=== PATIENT | female | born 1985 | race Caucasian/White ===

== ENCOUNTER 2021-03-21 15:46 | Emergency (ER) | payer OTHER ==
[~2021-03-21] VITALS: Ht 160 cm; Wt 57.7 kg
--- NOTE | 2021-03-21 16:44 | PHYS DOC ---
General Adult EDM: Chief Complaint: RIB PAIN HPI: HPI: 35-year-old female presents with right lower quadrant abdominal pain and chest pain. She describes the pain is pain under her right ribs when she stands up, but goes down to her lower right abdomen when she sits down. It is worse with leaning back against something. The pain is a sharp pain moderate intensity. She also states that it is radiating up into her right shoulder and across her upper chest. She has not had this before. She denies shortness of breath but admits to taking shallow breaths because of pain. The patient has had pain like this before, but has not had in several months. She has intermittent issues wit h constipation at baseline. (KAUSHAL ORTEGA DO) Review of Systems: Review of Systems: Constitutional: Denies fever or chills Eyes: Denies change in visual acuity HENT: Denies nasal congestion or sore throat Respiratory: Shallow breathing Cardiovascular: Chest pain GI: Right lower quadrant abdominal pain. Denies nausea, vomiting, bloody stools or diarrhea : Denies dysuria Musculoskeletal: Denies back pain or joint pain Integument: Denies rash Neurologic: Denies headache, focal weakness or sensory changes Endocrine: Denies polyuria or polydipsia Lymphatic: Denies swollen glands Psychiatric: Denies depression or anxiety (KAUSHAL ORTEGA DO) Allergies: Allergies: Allergies Coded Allergies Type Severity Reaction Last Updated Verified No Known Drug Allergies 03/21/21 No (KAUSHAL ORTEGA DO) Physical Exam: PE: Constitutional: Well developed, well nourished, no acute distress, non-toxic appearance. [] HENT: Normocephalic, atraumatic, bilateral external ears normal, oropharynx moist, no oral exudates, nose normal. [] Eyes: PERRLA, EOMI, conjunctiva normal, no discharge. [] Neck: Normal range of motion, no tenderness, supple, no stridor. [] Cardiovascular:Heart rate regular rhythm, no murmur [] Lungs & Thorax: Bilateral breath sounds clear to auscultation [] Abdomen: Bowel sounds normal, soft, RLQ tenderness, no masses, no pulsatile masses. [] Skin: Warm, dry, no erythema, no rash. [] Back: No tenderness, no CVA tenderness. [] Extremities: No tenderness, no cyanosis, no clubbing, ROM intact, no edema. [] Neurologic: Alert and oriented X 3, normal motor function, normal sensory functi on, no focal deficits noted. [] Psychologic: Affect normal, judgement normal, mood normal. [] (KAUSHAL ORTEGA DO) Current Patient Data: Labs: Laboratory Tests Test 03/21/21 16:10 POC Urine HCG, Qualitative hcg negative (Negative) Vital Signs: Vital Signs Date Time Temp Pulse Resp B/P (MAP) Pulse Ox O2 Delivery O2 Flow Rate FiO2 03/21/21 15:46 98.5 70 20 111/71 (84) 100 Room Air (KAUSHAL ORTEGA DO) EKG: EKG: Sinus bradycardia, rate 49, normal axis, no ST elevation or depression. [] (KAUSHAL ORTEGA DO) Radiology/Procedures: Radiology/Procedures: [] (KAUSHAL ORTEGA DO) Radiology/Procedures: [address] [address] IMAGING REPORT Signed PATIENT: NORRIS ERVIN ACCOUNT: [id number] : 1985 LOCATION: ER AGE: 35 SEX: F EXAM STATUS: REG ER ORD. PHYSICIAN: KAUSHAL ORTEGA DO REASON: RLQ abdominal pain PROCEDURE: CT ABD PELV W/ IV CONTRST ONLY EXAMINATION: CT ABDOMEN+PELVIS W (CT ABDOMEN/PELVIS WITH IV CONTRAST) CLINICAL HISTORY: Right lower quadrant abdominal pain TECHNIQUE: CT of the abdomen and pelvis was performed using standard technique, scanning from just above the dome of the diaphragm to the symphysis pubis following administration of intravenous contrast. CT Dose Reduction Employed: One or more of the following individualized dose reduction techniques were utilized for this examination: 1. Automated exposure control 2. Adjustment of the mA and/or kV according to patient size 3. Use of iterative reconstruction technique. COMPARISON: None FINDINGS: Mild bibasilar subsegmental atelectasis. Small nodular opacities in the bilateral lung bases measuring up to 5 mm in size, most of which are solid with at least one that is groundglass attenuation. 1.7 cm round hypodense lesion in the right hepatic lobe, incompletely evaluated but possibly a hemangioma. Gallbladder, pancreas, spleen, adrenal glands, and kidneys unremarkable. Minimally filled urinary bladder suboptimally evaluated. Uterus unremarkable. Dilated loops of small bowel with air-fluid levels including the duodenum measuring up to 3.3 cm and loops of proximal ileum measuring up to 3.1 cm in diameter. Distal ileum decompressed. No clear transition point visualized. Prominent bowel gas throughout the nondilated colon. Appendix not definitively visualized. No abdominal aortic or iliac artery aneurysm. Thoracolumbar degenerative changes with grade 1 L4-5 retrolisthesis. IMPRESSION: Dilated loops of small bowel and gaseous distention of the colon, possibly related to ileus versus mild/partial small bowel obstruction. 1.7 cm lesion in the right hepatic lobe, incompletely evaluated but possibly a hemangioma. Multiple small nodular opacities in the bilateral lung bases, correlate for suspected malignancy and consider optional CT chest in 12 months to evaluate stability. Electronically signed by: Sam Vanessa DO (03/21/2021 6:08 PM) [facility] DICTATED AND SIGNED BY: SAM VANESSA DO DATE: 03/21/21 1659 CC: KAUSHAL ORTEGA DO; NON,STAFF ~MTH0 0 (KALLI TERRY MD) Heart Score: C/O Chest Pain: Yes HEART Score for Chest Pain: HEART Score for Chest Pain Response (Comments) Value History Slighlty/Non-Suspicious 0 ECG Normal 0 Age < 45 0 Risk Factors No Risk Factors 0 Troponin < Normal Limit 0 Total 0 Risk Factors: Risk Factors: DM, Current or recent (<one month) smoker, HTN, HLP, family history of CAD, obesity. Risk Scores: Score 0 - 3: 2.5% MACE over next 6 weeks - Discharge Home Score 4 - 6: 20.3% MACE over next 6 weeks - Admit for Clinical Observation Score 7 - 10: 72.7% MACE over next 6 weeks - Early Invasive Strategies (KAUSHAL ORTEGA DO) Course & Med Decision Making: Course & Med Decision Making Pertinent Labs and Imaging studies reviewed. (See chart for details) The patient's EKG is unremarkable. The patient's labs are unremarkable. Her troponin is negative. Her urinalysis is negative for infection. The rest of her work-up is pending. I am signing the patient out to Dr. Terry at [id number]. [] (KAUSHAL ORTEGA DO) Course & Med Decision Making See Dr. Ochoa chart prior shift change for details. Recommend patient remain on a clear fluid diet for 24 to 48 hours.. Patient declines admission at this time. Patient follow-up primary care. No solids. No milk products. Tylenol and ibuprofen for pain. Return if any concerns. Patient to follow-up primary care had them review ED work-up. Impression: 1. Small Bowel Obstruciton (KALLI TERRY MD) Dragon Disclaimer: Dragon Disclaimer: This electronic medical record was generated, in whole or in part, using a voice recognition dictation system. (KAUSHAL ORTEGA DO) Departure Departure: Referrals: PCP,NO (PCP) Armand Disclaimer This chart was dictated in whole or in part using Voice Recognition software in a busy, high-work load, and often noisy Emergency Department environment. It may contain unintended and wholly unrecognized errors or omissions. (KALLI TERRY MD) KAUSHAL ORTEGA DO March 21, 2021 16:44 KALLI TERRY MD March 21, 2021 18:22
--- NOTE | 2021-03-21 16:51 | EKG ---
[address] [address] Test Date: 2021-03-21 Test Time: 16:44:23 Pat Name: NORRIS ERVIN Department: Room: Gender: F Scalp Treatment Operator: SHAWN : 1985 Requested By: KAUSHAL ORTEGA Order Number: [id number] Reading MD: Measurements Intervals Bath Rate: 49 P: 40 HI: 120 QRS: 52 QRSD: 82 T: 24 QT: 422 QTc: 380 Interpretive Statements SINUS BRADYCARDIA OTHERWISE NORMAL ECG RI6.02 No previous ECG available for comparison
[2021-03-21] MEDS: MORPHINE SULFATE 2 MG/ML DISP.SYRIN. IV ONE (16:58)
[2021-03-21] MEDS: ONDANSETRON PF 4 MG/2 ML VIAL. IVP ONE (16:58)
[2021-03-21 17:02] LABS: BACTERIA,URINE MOD /HPF (0-FEW); BILIRUBIN,URINE SMALL (NEG); CLARITY,URINE CLEAR; COLOR,URINE YELLOW; GLUCOSE,URINE NEG (NEG); NITRITE,URINE NEG (NEG); RBC,URINE 0 /HPF (0-2); SQUAMOUS EPITHELIAL CELL,UR MOD /LPF; UROBILINOGEN,URINE 0.2 mg/dL (0.2 mg/dL)
[2021-03-21 17:21] LABS: BASO % 1 % (0-3); EOS # 0.1 x10^3/uL (0.0-0.7); EOS % 2 % (0-3); HEMATOCRIT 40.5 % (36.0-47.0); LYMPH % 33 % (24-48); MEAN CORPUSCULAR HEMOGLOBIN 33 pg (25-35); MEAN CORPUSCULAR HGB CONC 35 g/dL (31-37); MEAN CORPUSCULAR VOLUME 96 fL (79-100); MONO # 0.3 x10^3/uL (0.0-1.1); MONO % 5 % (0-9); NEUT # 3.5 x10^3uL (1.8-7.7); NEUT % 59 % (31-73); PLATELET COUNT 291 x10^3/uL (140-400); RED BLOOD COUNT 4.23 x10^6/uL (3.50-5.40); RED CELL DISTRIBUTION WIDTH 12.3 % (11.5-14.5)
[2021-03-21 17:26] LABS: CALCIUM 9.4 mg/dL (8.5-10.1); CREATININE 0.8 mg/dL (0.6-1.0); GFR 81.2; POTASSIUM 4.3 mmol/L (3.5-5.1)
[2021-03-21 17:27] VITALS: BP 124/64
[2021-03-21] MEDS: IOHEXOL 300 MG/ML 75 ML VIAL. IV ONE (17:29)
[2021-03-21 17:32] LABS: ALBUMIN/GLOBULIN RATIO 1.1 (1.0-1.7); TOTAL BILIRUBIN 0.4 mg/dL (0.2-1.0); TOTAL PROTEIN 7.5 g/dL (6.4-8.2)
--- NOTE | 2021-03-21 17:45 | RAD ---
EXAMINATION: XR CHEST 1V CLINICAL HISTORY: Right lower quadrant abdominal pain EXAM DATE/TIME: 03/21/2021 4:40 PM COMPARISON: None FINDINGS: Lines, Tubes, and Devices: None. Cardiomediastinal Silhouette: Within normal limits. Lungs and Pleura: No evidence of focal airspace consolidation or pleural effusion. Pulmonary vasculat ure unremarkable. Bones and Soft Tissues: Mild degenerative changes in the thoracic spine. IMPRESSION: No evidence of acute cardiopulmonary abnormality. Electronically signed by: Sam Diaz DO (03/21/2021 5:43 PM) N[facility]
--- NOTE | 2021-03-21 18:10 | RAD ---
EXAMINATION: CT ABDOMEN+PELVIS W (CT ABDOMEN/PELVIS WITH IV CONTRAST) CLINICAL HISTORY: Right lower quadrant abdominal pain TECHNIQUE: CT of the abdomen and pelvis was performed using standard technique, scanning from just ab ove the dome of the diaphragm to the symphysis pubis following administration of intravenous contrast . CT Dose Reduction Employed: One or more of the following individualized dose reduction techniques wer e utilized for this examination: 1. Automated exposure control 2. Adjustment of the mA and/or kV ac cording to patient size 3. Use of iterative reconstruction technique. COMPARISON: None FINDINGS: Mild bibasilar subsegmental atelectasis. Small nodular opacities in the bilateral lung bases measurin g up to 5 mm in size, most of which are solid with at least one that is groundglass attenuation. 1.7 cm round hypodense lesion in the right hepatic lobe, incompletely evaluated but possibly a taylor ioma. Gallbladder, pancreas, spleen, adrenal glands, and kidneys unremarkable. Minimally filled urinary bladder suboptimally evaluated. Uterus unremarkable. Dilated loops of small bowel with air-fluid levels including the duodenum measuring up to 3.3 cm and loops of proximal ileum measuring up to 3.1 cm in diameter. Distal ileum decompressed. No clear trans ition point visualized. Prominent bowel gas throughout the nondilated colon. Appendix not definitivel y visualized. No abdominal aortic or iliac artery aneurysm. Thoracolumbar degenerative changes with grade 1 L4-5 re trolisthesis. IMPRESSION: Dilated loops of small bowel and gaseous distention of the colon, possibly related to ileus versus mi ld/partial small bowel obstruction. 1.7 cm lesion in the right hepatic lobe, incompletely evaluated but possibly a hemangioma. Multiple small nodular opacities in the bilateral lung bases, correlate for suspected malignancy and consider optional CT chest in 12 months to evaluate stability. Electronically signed by: Sam Diaz DO (03/21/2021 6:08 PM) [facility]
[2021-03-21] MEDS: KETOROLAC 30 MG/ML VIAL. IVP ONE (18:54)
== END 2021-03-21 18:57 | disposition home or self-care (01) ==
LOC: ER 15:46
DX: K56.609 Unspecified intestinal obstruction, unspecified as to partial versus complete obstruction (principal); K59.00 Constipation, unspecified
CPT/HCPCS: 36415; 71045; 74177; 80053; 81001; 81025; 84484; 85025; 87086; 93005; 96374; 96375; 99285; J1885; J2270; J2405; Q9967

== ENCOUNTER 2021-04-21 18:59 | Emergency (ER) | payer OTHER ==
[~2021-04-21] VITALS: Ht 160 cm; Wt 56.0 kg
[2021-04-21 19:08] VITALS: BP 130/60
--- NOTE | 2021-04-21 19:33 | PHYS DOC ---
Past History Past Medical History: No Pertinent History (ZULEYMA JOHNSON APRN) Past Surgical History: No Surgical History (ZULEYMA JOHNSON APRN) Alcohol Use: None (ZULEYMA JOHNSON APRN) Adult General Chief Complaint Chief Complaint: LOWER EXT PAIN [facility] HPI Patient is a 36-year-old female presents emergency department with a chief complaint of right knee and terry pain after reporting a 350 pound cast iron heating unit fell against her upper knee and scraped down her terry. Patient states the incident happened several hours prior to arrival, did not take any medications for pain, patient states she did apply an ice pack for about 20 minutes just prior to arrival. 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 Patient states she is worried because she is supposed to run a marathon this weekend. Patient reports initially she was unable to walk without severe pain to her right knee area. Patient states she can now ambulate without any problems. Patient denies numbness or tingling to her right lower extremity. Patient denies any other physical complaints or physical concerns. Patient reports her last tetanus immunization was greater than 5 years ago patient reports no allergies to medications, states she takes no prescription medications at home, states she receives cortisone injections in her hip for chronic pains. Patient reports her last menstrual cycle was March 16 with normal duration of flow, states that she has irregular periods that it is not uncommon for her to be late or even miss a month. Patient states she is currently being worked up by her [employer] for irregular menstrual cycles. (ZULEYMA JOHNSON APRN) Review of Systems Review of Systems 14 body systems of review of systems have been reviewed. See HPI for pertinent positives and negative responses, otherwise all other systems are negative, nonpertinent or noncontributory. (ZULEYMA JOHNSON APRN) Allergies Allergies Allergies Coded Allergies Type Severity Reaction Last Updated Verified No Known Drug Allergies 04/21/21 No (ZULEYMA JOHNSON APRN) Physical Exam Physical Exam Constitutional: Well developed, well nourished, no acute distress, non-toxic appearance. 36-year-old female no apparent distress, walked down ED hallway and into room with steady gait. HENT: Normocephalic, atraumatic. Eyes: Normal conjunctiva, no drainage appreciated. Neck: Normal range of motion. Cardiovascular: No cyanosis appreciated, distal cap refill less than 2 seconds. Lungs & Thorax: Patient in no obvious respiratory distress. Skin: Warm, dry, no erythema, no rash. See extremity note for abrasion exam. Extremities: No tenderness, no cyanosis, no clubbing, ROM intact, no edema. Contusion with abrasion to right lateral knee just above the patella. No bleeding appreciated, abrasion extends down to distal anterior lateral aspect of tibia. No abnormalities of the ankle or foot, distal cap refill is less than 2 seconds, 2+ dorsalis pedis/posterior tibial pulses. No deformities appreciated, no edema appreciated. Knee ligamentous exams/tests within normal limits. There is no loss of sensation. Neurologic: Alert and oriented X 3, normal motor function, normal sensory function, no focal deficits noted. Psychologic: Affect normal, judgement normal, mood normal. (ZULEYMA JOHNSON APRN) Current Patient Data Vital Signs Vital Signs Date Time Temp Pulse Resp B/P (MAP) Pulse Ox O2 Delivery O2 Flow Rate FiO2 04/21/21 19:08 98.4 54 18 130/60 (83) 99 Room Air (ZULEYMA JOHNSON APRN) EKG EKG [] (ZULEYMA JOHNSON APRN) Radiology/Procedures Radiology/Procedures [] (ZULEYMA JOHNSON APRN) Heart Score C/O Chest Pain: No Risk Factors: Risk Factors: DM, Current or recent (<one month) smoker, HTN, HLP, family history of CAD, obesity. Risk Scores: Risk Factors: DM, Current or recent (<one month) smoker, HTN, HLP, family history of CAD, obesity. (ZULEYMA JOHNSON APRN) Course & Med Decision Making Course & Med Decision Making Pertinent Labs and Imaging studies reviewed. (See chart for details) 36-year-old female, vital signs reviewed, presents emergency department concerning right lower leg pain after reporting a 350 pound cast iron heating unit fell against it. The patient does have an abrasion consistent with the complaint injury, there is no bleeding of the skin, will order cleansing and dressing of wound for ED nursing staff, the patient's tetanus immunization is not up-to-date, will order Adacel DTaP IM injection, will order 60 mg IM Toradol injection for pain, will also order Depo-Medrol injection for complaint nerve pain of leg, patient did report history of IT band friction syndrome. Will order x-ray imaging to rule out bony fracture. No bony fracture appreciated per house radiologist interpretation, discussed with patient x-ray findings, discussed RICE therapy for contusion type injury, will order ice pack and Tony wrap to knee and lower extremity, patient states she will take home [id number] pain medications. Patient gave verbal understanding of discharge home instructions, follow-up with primary care for ongoing pain management, return to ER precautions and concerns, patient had no further questions or concerns and was discharged home without incident. (ZULEYMA JOHNSON APRN) Dragon Disclaimer Dragon Disclaimer This electronic medical record was generated, in whole or in part, using a voice recognition dictation system. (ZULEYMA JOHNSON APRN) Departure Departure: Impression: Primary Impression: Contusion of leg, right, multiple sites Additional Impression: Right leg pain Disposition: HOME / SELF CARE / HOMELESS Condition: GOOD Referrals: NON,STAFF (PCP) Patient Instructions: Elastic Bandage and RICE Additional Instructions: You are seen today in the emergency department for a blunt injury to your right leg, there were no concerning findings on the x-ray to suggest bony fractures. You were treated today in the emergency department with a Toradol injection for pain and inflammation, you are also treated with a Depo-Medrol injection for nerve pain and inflammation of the right leg, you had indicated your tetanus immunization was greater than 5 years ago, we have updated your tetanus immunization today with a medication called Adacel Tdap. Please use RICE therapy for pain and discomfort, I have attached information to this document regarding RICE therapy and contusions, please review. You may continue to use [id number] NSAID for pain and inflammation. Please follow-up with your primary care physician for ongoing pain management. Please return to the emergency department for worsening symptoms or other concerns. EMERGENCY DEPARTMENT GENERAL DISCHARGE INSTRUCTIONS Thank you for coming to [facility] (ED) today and trusting us with you care. We trust that you had a positivie experience in our Emergency Department. If you wish to speak to the department management, you may call the director at [phone]. YOUR FOLLOW UP INSTRUCTIONS ARE FOLLOWS: 1. Do you have a private Doctor? If you do not have a private doctor, please ask for a resource list of physicians or clinics that may be able to assist you with follow up care. 2. The Emergency Physician has interpreted your x-rays. The X-Ray specialist will also review them. If there is a change in the findings, you will be notified in 48 hours when at all possible. 3. A lab test or culture has been done, your results will be reviewed and you will be notified if you need a change in treatment. ADDITIONAL INSTRUCTIONS AND INFORMATION: 1. Your care today has been supervised by a physician who is specially trained in emergency care. Many problems require more than one evaluation for a complete diagnosis and treatment. We recommend that you schedule your follow up appointment as recommended to ensure complete treatment of you illness or injury. If you are unable to obtain follow up care and continue to have a problem, or if your condition worsens, we recommend that you return to the ED. 2. We are not able to safely determine your condition over the phone nor are we able to give sound medical advice over the phone. For these safety reasons, if you call for medical advice we will ask you to come to the ED for further evaluation. 3. If you have any questions regarding these discharge instructions please call the ED at [phone]. SAFETY INFORMATION: In the interest of safety, wellness, and injury prevention; we encourage you to wear your sealbelt, if you smoke; quite smoking, and we encourage family to use a protective helmet for bicycling and other sporting events that present an increased risk for head injury. IF YOUR SYMPTOMS WORSEN OR NEW SYMPTOMS DEVELOP, OR YOU HAVE CONCERNS ABOUT YOUR CONDITION; OR IF YOUR CONDITION WORSENS WHILE YOU ARE WAITING FOR YOUR FOLLOW UP APPOINTMENT; EITHER CONTACT YOUR PRIMARY CARE DOCTOR, THE PHYSICIAN WHOSE NAME AND NUMBER YOU WERE GIVEN, OR RETURN TO THE ED IMMEDIATELY. Attending Signature Attending Signature I have participated in the care of this patient and I have reviewed and agree with all pertinent clinical information above including history, exam, and recommendations. (KALLI RODRIGUEZ MD) Problem Qualifiers Primary Impression: Contusion of leg, right, multiple sites Encounter type: initial encounter Qualified Codes: S80.11XA - Contusion of right lower leg, initial encounter KARRINirajZULEYMA APRN Apr 21, 2021 19:33 KALLI RODRIGUEZ MD Apr 22, 2021 04:09
[2021-04-21] MEDS ORDERED: KETOROLAC 60 MG/2 ML VIAL. IM ONE (20:00)
[2021-04-21] MEDS ORDERED: methylPREDNISolone ACETATE 80 MG/ML VIAL. IM ONE (20:00)
[2021-04-21] MEDS ORDERED: DIPH,PERTUSS(ACELL),TET VAC/PF 0.5 ML SYRINGE. VAX IM ONE (20:00)
--- NOTE | 2021-04-21 20:45 | RAD ---
EXAM: AP, oblique and lateral views right knee DATE: 04/21/2021 8:04 PM INDICATION: Reason: BLUNT INJURY, ANTERIOR PAIN BRUISING / Spl. Instructions: / History: . COMPARISON: No Prior FINDINGS: No evidence of acute fracture or dislocation. No joint effusion. Joint spaces are preserved without significant degenerative/proliferative change. IMPRESSION: No acute fracture or dislocation. Electronically signed by: Wilton Andrews MD (04/21/2021 8:42 PM) [facility]
== END 2021-04-21 20:26 | disposition home or self-care (01) ==
LOC: ER 18:59
DX: S80.11XA Contusion of right lower leg, initial encounter (principal); W01.0XXA Fall on same level from slipping, tripping and stumbling without subsequent striking against object, initial encounter; Y93.89 Activity, other specified; Y92.89 Other specified places as the place of occurrence of the external cause; Y99.8 Other external cause status
CPT/HCPCS: 73562; 90471; 90715; 96372; 99284; J1040; J1885